=== PATIENT | female | born 1990 | race Two or more races ===

== ENCOUNTER 2018-08-20 08:41 | Emergency (ER) | payer SELFPAY ==
[~2018-08-20] VITALS: Ht 162.6 cm; Wt 92.5 kg
[2018-08-20 09:15] VITALS: BP 118/46
== END 2018-08-20 10:00 | disposition home or self-care (01) ==
LOC: ER 08:43
DX: J02.9 Acute pharyngitis, unspecified (principal)

== ENCOUNTER 2019-07-27 17:36 | Emergency (ER) | payer MEDICAID ==
[~2019-07-27] VITALS: Ht 162.6 cm; Wt 62.6 kg
[2019-07-27] MEDS ORDERED: ACETAMINOPHEN 325 MG TAB PO ONE ×2 (18:25→18:30)
[2019-07-27 19:33] VITALS: BP 128/76
[2019-07-27] MEDS ORDERED: IBUPROFEN 800 MG TAB PO ONE (19:45)
== END 2019-07-27 20:00 | disposition home or self-care (01) ==
LOC: ER 17:43
DX: J11.1 Influenza due to unidentified influenza virus with other respiratory manifestations (principal)